=== PATIENT | male | born 1990 | race Caucasian/White ===

== ENCOUNTER 2025-09-13 10:06 | Outpatient (REF) | payer OTHER, SELFPAY ==
[2025-09-13 13:18] LABS: MANUAL DIFF FLAG NO
[2025-09-13 13:28] LABS: Hematocrit 48.3 % (42.0-52.0); Hemoglobin 16.5 g/dl (14.0-18.0); Imm Gran Abs Auto 0.02 X10*3/uL (0.00-0.03); Imm Gran Pct Auto 0.3 % (0.0-0.4); Lymphocytes Absolute Auto 1.4 X10*3/uL (1.2-4.9); Mean Corpuscular HGB Conc 34.2 g/dl (31.0-36.0); Mean Corpuscular Hemoglobin 31.0 pg (27.0-33.0); Mean Corpuscular Volume 90.8 fL (80.0-98.0); NRBC Abs Auto 0.000 X10*3/uL (0.0-0.012); NRBC Pct Auto 0.0 /100WBC (0.0-0.2); Platelet Count 243 X10*3/uL (160-400); Red Blood Count 5.32 X10*6/uL (4.60-5.80); White Blood Count 7.1 X10*3/uL (4.8-10.8)
[2025-09-13 13:38] LABS: Appearance Urine Cloudy; Glucose Urine UA Negative (Negative); PH 5.5 (5.0-9.0); Specific Gravity - Urine 1.025 (1.005-1.025)
[2025-09-13 19:28] LABS: Alanine Aminotransferase 56 U/L (0-40); Albumin Level 5.1 g/dL (3.5-5.0); Alkaline Phosphatase 65 U/L (39-117); Anion Gap 13 (12-20); Aspartate Amino Transferase 32 U/L (5-37); Blood Urea Nitrogen 13 mg/dL (9-16); Calcium 9.8 mg/dL (8.4-10.2); Carbon Dioxide 27 mmol/L (22-29); Chloride 107 mmol/L (96-108); Cholesterol 263 mg/dL (<200); Estimated Glomerular Filt Rate > 60; HDL Cholesterol 53 mg/dL (>40); Magnesium 2.2 mg/dL (1.6-2.6); Potassium 4.2 mmol/L (3.3-5.1); Sodium 143 mmol/L (135-145); Total Protein 7.8 g/dL (6.5-8.0); Triglycerides 132 mg/dL (<150)
[2025-09-14 00:12] LABS: Folate 7.3 ng/mL (> or = 4.0); Vitamin B12 433 pg/mL (200-900)
[2025-09-14 08:28] LABS: HBS Num1 77.15 mIU/mL (0-7.99); HBsAGNum1 0.39 S/CO (0.00-0.99); HIV Num 1 0.06 S/CO (0.00-0.99); Hepatitis B Surface Antigen Negative (Negative); ~HepC Num1 0.06 S/CO (0.00-0.79); ~Hepatitis B Surface Antibody REACTIVE (Nonreactive); ~Hepatitis C Antibody Nonreactive (Nonreactive)
[2025-09-14 08:33] LABS: Syphilis Screen Nonreactive (Nonreactive)
[2025-09-19 15:28] LABS: VITAMIN D (1,25 OH) D3 35 pg/mL; Vit D (1,25-Dihydroxy) Total 35 pg/mL (18-72); Vitamin D (1,25 OH) D2 <8 pg/mL
== END 2025-09-13 10:07 | disposition home or self-care (01) ==
LOC: HO.HKASLDS 10:06
PROVIDERS: PCP Student in an Organized Health Care Education/Training Program; Visit Provider Student in an Organized Health Care Education/Training Program
DX: R03.0 Elevated blood-pressure reading, without diagnosis of hypertension (principal); J31.0 Chronic rhinitis; K92.1 Melena; Q17.8 Other specified congenital malformations of ear; F17.200 Nicotine dependence, unspecified, uncomplicated; Z13.31 Encounter for screening for depression; Z13.39 Encounter for screening examination for other mental health and behavioral disorders; Z13.1 Encounter for screening for diabetes mellitus; Z13.6 Encounter for screening for cardiovascular disorders
CPT/HCPCS: 36415; 80053; 80061; 81003; 82607; 82652; 82746; 83036; 83735; 84443; 85025; 86706; 86780; 86803; 87340; 87389; 96127

== ENCOUNTER 2025-09-13 10:06 | Outpatient (AMB) | payer OTHER, SELFPAY ==
--- NOTE | 2025-09-13 10:07 | A.OFFPC_ITS ---
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 Loader Required: No Accompanied by: Self / Same As Patient Allergies amoxicillin Allergy (Intermediate, Verified 09/13/25 10:12) Rash Medication List - Last Reconciled 09/13/25 by Jg Gomez MD azelastine 2 sprays intranasal BID [blood pressure kit As directed] Tobacco use date assessed: 09/13/25 Dental Screening Dental Screen Date: 09/13/25 Did you have a dental visit in the last 12 months?: Yes Did you have a dental problem in the last 6 months where you did not have access to dental care?: No Was dental information given to patient?: Patient has dentist HPI HPI Comments 2 History of Present Illness0 Details History of Present Illness The patient is a 35 year old male presenting to establish care and for a preventative care visit, with a secondary concern for elevated blood pressure readings in the clinical setting. Elevated blood pressure: The patient reports a concern for elevated blood pressure readings when visiting a doctor's office, which he believes may be due to white coat syndrome. This was the only issue previously flagged by a primary care provider. Chronic rhinitis: The patient reports chronic morning head congestion with significant phlegm, which has been ongoing for over 10 years. Symptoms are exacerbated when changing positions from lying down to standing and vary in severity with the seasons. He notes symptoms are less severe when staying in a hotel compared to at home. He previously tried Flonase 6-7 years ago without significant relief and found it interfered with his sleep. Hematochezia: The patient reports occasionally seeing a small amount of bright red blood on the toilet paper. He does not describe significant constipation but may have some difficulty with bowel movements once or twice a week without straining. Nicotine Dependence: The patient currently vapes and has done so for approximately 10 years. He previously smoked cigarettes, starting around age 20 for a few years at a rate of about one pack every week to week and a half. 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 Surgical History: - [place] teeth removal under general ane sthesia - Open reduction and internal fixation o f a right elbow fracture under general anesthesia in childhood Medications: - The patient reports taking no medicati ons. Social History: - Tobacco Use: The patient vapes and has been for about 10 years. - He has a history of smoking cigarettes for a few years starting at age 20, at a rate of 1 pack per 1-1.5 weeks. - Residence: He lived in [place] for 10 years and returned to [place] 4 years ago. Family History: - Denies any immediate family history of colon cancer. Past Medical History - History of amoxicillin allergy present ing as a drug rash - History of a broken right elbow in [employer] - Hospitalizations only for prior [facility] Health Maintenance - The patient is establishing care as a new patient. - He is 35 years old and does not requir e colon cancer screening at this time due to age and no family history. - Comprehensive lab work was ordered for a baseline health overview, including a complete blood count, comprehensive metabolic panel, hemoglobin A1c, lipid panel, hepatitis B and C, HIV, syphilis, thyroid function test, urinalysis, vitamin B12, folate, and vitamin D. [facility] Medical History (Updated 09/13/25 @ 12:50 by Jg Gomez MD) Other specified congenital malformations of ear Nicotine dependence Hematochezia Chronic rhinitis Elevated blood pressure reading Surgical History (Updated 09/13/25 @ 10:14 by Bret Palacios CMA) H/O elbow surgery [place] teeth extracted Family History (Updated 09/13/25 @ 10:16 by Bret Palacios CMA) Maternal Grandmother Diabetes Cancer Maternal Grandfather Heart disease Paternal Grandfather Alzheimer dementia Father Hypertension Social History (Updated 09/13/25 @ 10:16 by Bret Palacios CMA) Housing: Apartment Alcohol intake: current Comment: ocasionally Patient Tobacco Use Status: Never used Tobacco e-Cigarette/Vaping Use: Currently Using Second Hand Smoke Exposure: No service: No Current occupational status: employed 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 1. Little interest or pleasure in doing things: not at all 2. Feeling down, depressed, or hopeless: not at all 3. Trouble falling or staying asleep, or sleeping too much: not at all 4. Feeling tired or having little energy: several days 5. Poor appetite or overeating: not at all 6. Feeling bad about yourself - or that you are a failure or have let yourself or your family down: not at all 7. Trouble concentrating on things, such as reading the newspaper or watching television: not at all 8. Moving or speaking so slowly that other people could have noticed. Or the opposite - being so fidgety or restless that you have been moving around a lot more than usual: not at all 9. Thoughts that you would be better off or of hurting yourself in some way: not at all Total score: 1 Depression Screening Interpretation: Negative Depression Screening Done: Yes 72964 - PHQ-9 Billing: Yes Source: Developed by Drs. Aditya Butler, Aurea Savage, Soren Cadet and colleagues, with an educational humera from [employer]. Thrive Questionnaire Date Thrive assessed: 09/13/25 I am a: Patient What is your living situation today?: I have a steady place to live Within the past 12 months, did the food you bought not last and you didn't have the money to get more?: Never true Within the past 12 months, did you worry whether your food would run out before you got money to buy more?: Never true Do you have trouble paying for medicines?: No Do you have trouble getting transportation to medical appointments?: No Do you have trouble paying your heating and electricity bill?: No Do you have trouble taking care of your child, family member or friend?: No Do you have trouble with day-to-day activities such as bathing, preparing meals, shopping, managing finances, etc.?: No Are you currently unemployed and looking for a job?: No Are you interested in more education?: I choose not to answer this question Please select the resources that you would like help with: None Currently or been in a relationship where the following occur: No concerns reported THRIVE Score: 0 AUDIT C Alcohol Use Questionnaire (AUDIT-C) 1. How often do you have a drink containing alcohol?: 2-3 times a week 2. How many drinks containing alcohol do you have on a typical day when you are drinking?: 1 or 2 3. How often do you have six or more drinks on one occasion?: Monthly Total Score: 5 SHARON-7 AMB Questionnaire SHARON-7 Date SHARON - 7 assessed: 09/13/25 Feeling nervous, anxious, or on edge: 1 = Several days Not being able to stop or control worryin = Not at all Worrying too much about different things: 1 = Several days Trouble relaxin = Several days Being so restless that it is hard to sit still: 0 = Not at all Becoming easily annoyed or irritable: 0 = Not at all Feeling afraid as if something awful might happen: 0 = Not at all Total SHARON-7 score (0-4 normal; 5-9 mild; 10-14 moderate; 15-21 severe): 3 Source: Developed by Drs. Aditya Butler, Aurea Savage, Soren Cadet and colleagues, with an educational humera from [employer]. SHARON-7 Assessment Billing SHARON-7 Assessment Tool: SHARON-7 Assessment 90636 Review of Systems Narrative Review of Systems - HEENT: Reports chronic morning head congestion with phlegm for 10+ years. - Cardiovascular: Reports concern for elevated blood pressure readings in a clinical setting. - Denies lower extremity swelling. - Gastrointestinal: Reports occasionally seeing bright red blood on toilet paper. - Denies significant constipation. - Reports normal urination and bowel movements. - Musculoskeletal: Reports a history of lower back pain, but denies any recent episodes in the last 6-8 months. - Integumentary/Skin: Reports small white bumps on one ear since childhood. - Allergic/Immunologic: Reports an allergy to amoxicillin, which caused a rash. 10-point ROS reviewed and negative except as noted in HPI Physical exam (Primary Care) Vital Signs: Last Vital Signs Temp 98 F 09/13/25 10:17 Pulse 88 09/13/25 10:17 Resp 20 09/13/25 10:17 BP 154/80 H 09/13/25 10:17 Pulse Ox 99 09/13/25 10:17 Oxygen Delivery Method Room Air 09/13/25 10:17 BMI result Body Mass Index 27.8 Tobacco/Smoking Status: Tobacco use Status Tobacco use date assessed 09/13/25 09/13/25 10:19 Patient Tobacco Use Status Never used Tobacco 09/13/25 10:19 e-Cigarette/Vaping Use Currently Using 09/13/25 10:19 PHQ-9: PHQ-9 Score PHQ-9: Total score 1 09/13/25 10:11 Depression Screening Interpretation: Negative Thrive Assessment: Date of Thrive Assessment Date Thrive assessed 09/13/25 09/13/25 10:11 Currently or been in a relationship where the following occur: No concerns reported Narrative Physical Exam General: Well-appearing, in no acute distress. Vital signs: Within normal limits. HEENT: Normocephalic, atraumatic. PERRLA, EOMI. Conjunctiva clear, sclera anicteric. Oropharynx clear, mucous membranes moist. TMs intact bilaterally. Noted congestion and phlegm, especially in the mornings. Neck: Supple, no lymphadenopathy, no thyromegaly, no JVD or carotid bruits. Cardiovascular: RRR, normal S1/S2, no murmurs, rubs, or gallops. Peripheral pulses 2+ and symmetric. No edema. Respiratory: Lungs clear to auscultation bilaterally, no wheezes, rales, or rhonchi. Normal effort. Abdomen: Soft, non-tender, non-distended. Normoactive bowel sounds. No hepatosplenomegaly, no masses. MSK: Full range of motion, no joint swelling or deformity. Normal gait. Noted slight lower back pain, likely muscular. Skin: Warm, dry, intact. No rashes, lesions, or pallor. Noted small white bumps on ears, possibly keratin plugs. Neuro: Alert and oriented x3. Cranial nerves II-XII intact. Strength 5/5 throughout. Sensation intact. Reflexes 2+ symmetric. Normal coordination and gait. Psych: Appropriate mood and affect. Normal judgment and insight. Coding Level of Care Code New Pt Level 4 (46288) Diagnoses Elevated blood pressure reading R03.0 Chronic rhinitis J31.0 Hematochezia K92.1 Nicotine dependence F17.200 Other specified congenital malformations of ear Q17.8 Additional Codes SHARON-7 Assessment Billing - SHARON-7 Assessment Tool: SHARON-7 Assessment 75636 ([id number]) PHQ-9 - 34708 - PHQ-9 Billing: Yes ([id number]) Assessment & Plan Assessment & Plan (1) Elevated blood pressure reading: Code(s): R03.0 - Elevated blood-pressure reading, without diagnosis of hypertension Category: Medical (2) Chronic rhinitis: Code(s): J31.0 - Chronic rhinitis Category: Medical (3) Hematochezia: Code(s): K92.1 - Melena Category: Medical (4) Nicotine dependence: Code(s): F17.200 - Nicotine dependence, unspecified, uncomplicated Category: Medical (5) Other specified congenital malformations of ear: Code(s): Q17.8 - Other specified congenital malformations of ear Category: Medical Plan Consent The patient provided verbal consent to have a picture taken of the congenital lesions on his ear to be added to his medical chart for further review. Patient was informed and verbally consented to the use of an ambient scribe for clinic note documentation during this visit. Plan 1. Preventative Care - A comprehensive blood panel was ordered, including CBC, CMP, HbA1c, lipid panel, hepatitis B/C screen, HIV and syphilis tests, TSH, urinalysis, vitamin B12, folate, and vitamin D to establish a baseline of health. - A follow-up visit is scheduled in two weeks to review results. - If all results are normal, the patient will follow up in six months. 2. Elevated Blood Pressure Reading - To evaluate for white coat hypertension, a prescription for a home blood pressure kit was provided. - The patient was instructed to measure his blood pressure twice daily (morning and evening), taking three readings each time and recording the best one after a 10-minute rest period. - He will bring a two-week log of his readings to the follow-up appointment. 3. Chronic Rhinitis - Since a previous trial of Flonase was not effective, a prescription for azelastine nasal spray was provided. - The patient was advised to try using an air purifier and a humidifier at home to help alleviate symptoms. 4. Hematochezia - A complete blood count (CBC) was ordered as part of the lab panel to check for anemia. - The patient was advised to increase fiber in his diet. 5. Congenital Auricular Anomaly - A picture of the lesions was taken with the patient's consent for his medical chart. - The condition will be researched, with a possibility of them being keratin plugs, and potential treatment options will be discussed at a future appointment if the patient desires. Discussion Notes I discussed with the patient that this visit would serve to establish care and create a comprehensive overview of his health. I explained the rationale for ordering a wide range of blood tests to get a complete baseline. We discussed his concern about high blood pressure readings in the office and the possibility of white coat hypertension, and I outlined the plan for home blood pressure monitoring to get a more accurate picture. Regarding his chronic congestion, I acknowledged that Flonase was not effective and prescribed azelastine nasal spray instead, also suggesting he try using a humidifier and air purifier at home. I addressed the congenital bumps on his ear, explained that I would research them, and obtained his consent to take a picture for his chart, mentioning that we could discuss treatment options later if he wishes. I informed him about the plan to check for anemia in light of his reported hematochezia. Finally, I advised him to follow up in two weeks to review all the results. 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 - Check your blood pressure at home once in the morning and once at night for the next two weeks. - When you check it, sit and relax for 10 minutes with the cuff on, then take three readings and write down the best (lowest) one. - Go to the lab to have your blood drawn for the tests that were ordered. - Use the azelastine nasal spray prescribed for you each morning for your congestion. - For your congestion, consider using a humidifier and an air purifier at home. - Try to eat more fiber to help with the occasional blood you see on the toilet paper. - Schedule a follow-up appointment in two weeks to go over your blood pressure log and lab results. Medical Decision Making The patient is a 35-year-old male presenting to establish care and for a preventative health visit. A comprehensive assessment was initiated to establish a health baseline. The patient's concern for elevated blood pressure readings in the office suggests possible white coat hypertension. To obtain a more accurate assessment of his daily blood pressure, a two-week home monitoring protocol was initiated. This data will be crucial in determining the need for antihypertensive therapy. His chronic morning congestion, which has seasonal variation and is location- dependent, is most consistent with allergic rhinitis. Given the prior ineffectiveness and side effects of a nasal corticosteroid (Flonase), I have prescribed an alternative, azelastine nasal spray (antihistamine), and recommended environmental controls. The report of occasional bright red blood per rectum without constipation is likely secondary to internal hemorrhoids. A CBC was ordered to rule out anemia from chronic low-volume blood loss, and dietary fiber was recommended as a first-line intervention. Finally, a comprehensive lab panel appropriate for his age was ordered to screen for common metabolic, infectious, and hematologic conditions. Follow-up in two weeks will be used to synthesize the lab data and blood pressure log to formulate a long-term health maintenance plan. Total Time Statement 30 min Total time spent caring for the patient today includes pre-visit chart review, documentation, review of laboratory and diagnostic imaging results, medication reconciliation, medically necessary evaluation, counseling on diagnoses, care coordination, ordering appropriate tests and medications, review of tests performed by other providers, reporting test results to the patient, and communication with other healthcare providers. Orders: Orders 2 Complete Blood Count Auto Diff Today Z13.9 - Encounter for screening, unspecified Hepatitis B Surface Antigen Today Z13.9 - Encounter for screening, unspecified Syphilis Screen Today Z13.9 - Encounter for screening, unspecified Comprehensive Met. Panel Today Z13.9 - Encounter for screening, unspecified Hepatitis C Antibody Today Z13.9 - Encounter for screening, unspecified HIV Ab/Ag Today Z13.9 - Encounter for screening, unspecified Vitamin B12 and Folate Today Z13.9 - Encounter for screening, unspecified Hemoglobin A1c Today Z13.9 - Encounter for screening, unspecified Magnesium Today Z13.9 - Encounter for screening, unspecified Vitamin D 1,25 dihydroxy Today Z13.9 - Encounter for screening, unspecified TSH reflex Free T4 Today Z13.9 - Encounter for screening, unspecified UA CC w/rflx Micro + Cult Today Z13.9 - Encounter for screening, unspecified Lipid Panel Today Z13.9 - Encounter for screening, unspecified Hepatitis B Surface Antibody Today Z13.9 - Encounter for screening, unspecified Medications: New 2 [blood pressure kit] As directed 1 ea 0RF I10 - Essential (primary) hypertension azelastine administer into each nostril 2 sprays intranasal BID 30 mL 0RF
[2025-09-13 10:17] VITALS: BP 154/80; PULSE 88; RESP 20; TEMP 36.6; O2SAT 99; BMI 27.8
== END 2025-09-13 10:36 | disposition home or self-care (01) ==
LOC: HO.HMCFMS 10:06
PROVIDERS: PCP Student in an Organized Health Care Education/Training Program; Visit Provider Student in an Organized Health Care Education/Training Program
DX: R03.0 Elevated blood-pressure reading, without diagnosis of hypertension (principal); J31.0 Chronic rhinitis; K92.1 Melena; F17.200 Nicotine dependence, unspecified, uncomplicated; Q17.8 Other specified congenital malformations of ear